=== PATIENT | male | born 1970 ===

== ENCOUNTER → 2018-11-03 13:39 | Outpatient (REF) | payer OTHER, SELFPAY ==
[2018-11-03 18:35] LABS: Prostate Specific Antigen 0.893 ng/mL (0.10-4.00)
== END ==
LOC: LAB 13:39
PROVIDERS: Visit Provider Family Medicine
DX: Z12.5 Encounter for screening for malignant neoplasm of prostate (principal)
CPT/HCPCS: 36415; 84153